=== PATIENT | female | born 1985 | race Caucasian/White ===

== ENCOUNTER 2020-08-10 21:00 | Emergency (ER) | payer MEDICAID, SELFPAY ==
[2020-08-10 21:28] VITALS: BP 139/88; PULSE 92; RESP 18; TEMP 36.7; O2SAT 96; BMI 42.7
[2020-08-10 23:00] VITALS: BP 129/82; PULSE 90; RESP 16; O2SAT 100
[2020-08-10 23:00] LABS: Add Urine Microscopic? NO; Charge for UA Resulting for Rev
[2020-08-10 23:06] LABS: Bilirubin Urine Neg (Negative); Blood Urine Neg (Negative); Glucose Urine UA Norm (Normal); Ketones Urine Negative (Negative); Leukocyte Esterase Urine Negative (Negative); Nitrate Urine Negative (Negative); Protein Urine Neg (Negative); Urine Appearance Clear (CLEAR); Urine Color Yellow (Yellow); Urobilinogen Urine Norm (Negative); pH Urine 5 (5-7)
--- NOTE | 2020-08-10 23:09 | ED_ITS ---
HPI - General Adult General: Chief complaint: Nausea/Vomiting/Diarrhea Stated complaint: positive pregnany test, not feeling well Time Seen by Provider: 08/10/20 22:59 History of Present Illness: HPI narrative: This patient is a 35-year-old female who presents to the emergency department with complaint of nausea vomiting. Patient states she is not felt with good over the past couple days to a week in the mornings. Patient actually was seen at the hospital in [place] and was told that she had hypertension continue her home medications. Patient states over the past few days has been kind of fatigued and has nausea and vomiting in the mornings. Patient then states that she has had 2+ test at home. Blood pressure on arrival 120s over 80s. Patient does not appear to be acutely dehydrated. Patient states she provided urine. It is positive for . This patient does not appear to have an acute emergent complaint. Will do medical evaluation treat as needed. Patient be given Zofran while waiting on urine. Onset (ago): week(s) Associated symptoms: Reports nausea and vomiting; Deny chest pain, dyspnea, headache(s), rash or palpitations Review of Systems General: Reports: 10 or more systems reviewed and unremarkable except in HPI and below Const: Denies: fever(s), chills, body aches or fatigue Eyes: Denies: change in vision or blurry vision ENMT: Denies: throat pain, hoarseness or mouth pain Card: Denies: chest pain, palpitations, irregular heart rhythm, edema, swelling of feet/ankles or lightheadedness Resp: Denies: dyspnea, productive cough, non-productive cough, wheezing or pain on inspiration GI: Reports: nausea and vomiting; Denies: abdominal pain : Denies: flank pain, difficulty voiding, dysuria, urinary frequency, urinary urgency or urinary hesitancy Musc: Denies: neck pain, back pain, extremity pain, extremity swelling, joint pain, joint swelling, joint redness, joint warmth or limited range of motion Skin/Breast: Denies: rash, pruritus, erythema or skin tenderness Neuro: Denies: headache(s), numbness in extremities or weakness in extremities Psych: Denies: anxiety or depression Physical Exam Const: COMMON NORMALS: no acute distress, average body habitus, patient oriented x3, no limitations, healthy appearing, alert and well nourished HENMT: COMMON NORMALS: normocephalic, atraumatic, hearing grossly normal bilaterally, external ears normal, EAC's normal, TM's normal bilaterally, Normal external nose present, Normal nasal mucous membranes and turbinates present, moist oral mucous membranes, oropharynx normal, dentition normal and gingiva normal HEAD & SCALP: normocephalic and atraumatic NOSE: Normal external nose present and Normal nasal mucous membranes and turbinates present EXTERNAL EAR: Yes external ears normal EXTERNAL AUDITORY CANAL: EAC's normal TYMPANIC MEMBRANE: TM's normal bilaterally Neck/C-Spine: COMMON NORMALS: full ROM, no lymphadenopathy, supple, no meningeal signs, no JVD, Thyroid normal and No carotid bruits THYROID: Thyroid normal Chest: COMMONS NORMALS: normal inspection of the chest, normal palpation of entire chest wall, normal inspection of the breasts and normal palpation of the breasts Breast/axilla inspection: Yes normal inspection of the breasts BREAST/AXILLA PALPATION: Yes normal palpation of the breasts Resp: COMMON NORMALS: normal respiratory effort, No retractions, No use of accessory muscles, clear to auscultation bilaterally and percussion normal AUSCULTATION: clear to auscultation bilaterally PERCUSSION: percussion normal Cardio: COMMON NORMALS: no JVD, regular rate, regular rhythm, S1 normal heart sound present, S2 normal heart sound present, No gallops present (Cardio), No clicks present (Cardio), No murmurs present (Cardio), No rub (Cardio) and Peripheral pulses 2+ throughout RATE: regular rate RHYTHM: regular rhythm HEART SOUNDS: S1 normal heart sound present and S2 normal heart sound present PERIPHERAL PULSES: Peripheral pulses 2+ throughout GI: COMMON NORMALS: Normal to inspection, nondistended, normoactive bowel sounds present, Soft to palpation, non-tender, No hepatosplenomegaly present, no masses and no bruits PALPATION: Yes Soft to palpation and Yes No hepatosplenomegaly present Back/Pelvis: COMMON NORMALS: thoracic and lumbar spine normal to inspection, no thoracic nor lumbar tenderness, thoraco-lumbar ROM normal and straight leg raise negative bilaterally Extremity: COMMON NORMALS: normal to inspection, full ROM, capillary refill normal, no joint enlargement, no clubbing, cyanosis or edema, no calf tenderness and no pedal edema Neuro: COMMON NORMALS: patient oriented x3 SENSORIUM/ORIENTATION: Yes alert MENINGEAL SIGNS: Yes no meningeal signs Course Vital Signs: Vital signs: Vital Signs Temperature 98.1 F 08/10/20 21:28 Pulse Rate 90 08/10/20 23:00 Respiratory Rate 16 08/10/20 23:00 Blood Pressure 129/82 08/10/20 23:00 Pulse Oximetry 100 08/10/20 23:00 MDM - General Adult MDM Narrative: Medical decision making narrative: Patient urine test is positive. Patient most likely having morning sickness. Patient be given a prescription for Zofran and discharged home. Patient is to follow-up with her primary care physician or AUDIT MACHINE OPERATOR for further evaluation and treatment. Lab Data: Labs: Lab Results 08/10/20 08/10/20 Range/Units 22:50 22:50 Urine Color Yellow (Yellow) Urine Appearance Clear (CLEAR) Urine pH 5 (5-7) Ur Specific Gravit y 1.020 (1.005-1.030) Urine Protein Neg (Negative) Urine Glucose (UA) Norm (Normal) Urine Ketones Negative (Negative) Urine Blood Neg (Negative) Urine Nitrate Negative (Negative) Urine Bilirubin Neg (Negative) Urine Urobilinogen Norm (Negative) mg/dL Ur Leukocyte Abbie ase Negative (Negative) Urine HCG, Qual Positive H (Negative) Discharge Plan Discharge Patient Disposition: Home Clinical Impression: Morning sickness, Incidental intrauterine Condition: Stable Prescriptions: New ondansetron 4 mg tablet,disintegrating 4 mg PO DAILY PRN (Reason: nausea and vomiting) 4 Days RF: 0 Discharge Orders: Discharge ED (Routine); Ordered 08/11/20 Ordered By: Ward Duenas Referrals: Nancie Najera MD [Primary Care Provider] - Discharge Diet: Advance as tolerated Discharge Activity: Resume usual activity Patient Instructions: Opioid Safety Activity Restrictions/Additional Instructions: Encourage p.o. fluids. [id number] vitamins. Follow-up with your AUDIT MACHINE OPERATOR or family doctor to discuss further options about your . Zofran as needed for nausea Coding Level of Care Code ED Supervisor [employer] for Chg Fwd Exam Comprehensive
[2020-08-10] MEDS: ondansetron 4 MG Tablet PO (23:11)
[2020-08-11 01:14] VITALS: BP 142/80; PULSE 88; RESP 18; O2SAT 99
== END 2020-08-11 01:15 | disposition home or self-care (01) ==
PROVIDERS: Physician Assistant; Emergency Provider Emergency Medicine; PCP Family Medicine
DX: O21.9 Vomiting of pregnancy, unspecified (principal); Z3A.00 Weeks of gestation of pregnancy not specified
CPT/HCPCS: 81003; 81025; 99283; Q0162